=== PATIENT | male | born 2005 | race Caucasian/White ===

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

== ENCOUNTER 2023-04-05 11:01 | Outpatient (REF) | payer OTHER, SELFPAY ==
[2023-04-05 15:14] LABS: Source Nasal/Nares
[2023-04-05 16:27] LABS: COVID-19 PCR Negative (Negative)
== END 2023-04-05 11:02 | disposition home or self-care (01) ==
LOC: LBN 11:01
PROVIDERS: Visit Provider Physician Assistant
DX: R68.89 Other general symptoms and signs (principal); J02.9 Acute pharyngitis, unspecified
CPT/HCPCS: 87635; 87070